=== PATIENT | female | born 1975 ===

== ENCOUNTER → 2019-01-02 20:55 | Outpatient (ROUT) | payer OTHER, SELFPAY ==
[2019-01-02 21:27] LABS: Add Manual Diff / Slide Review NO; Basophils Absolute Auto 0 /uL (0-100); Basophils Percent Auto 0.4 % (0-2); Eosinophils Absolute Auto 100 /uL (0-450); Eosinophils Percent Auto 0.5 % (2-4); Hematocrit 46.1 % (36-46); Hemoglobin 14.4 g/dL (12.0-16.0); Lymphocytes Absolute Auto 2400 /uL (1100-4500); Lymphocytes Percent Auto 24.2 % (25-40); Mean Corpuscular HGB Conc 31.3 % (30-36); Mean Corpuscular Hemoglobin 28.5 PG (26-34); Monocytes Absolute Auto 800 /uL (0-900); Monocytes Percent Auto 8.2 % (3-14); Neutrophils Absolute Auto 6500 /uL (1500-7000); Neutrophils Percent Auto 66.7 % (50-75); Platelet Count 289 X10^3/uL (150-400); Red Blood Cell Count 5.06 X10^6/uL (4.0-5.2); Red Cell Distribution Width 14.3 % (11.6-14.8); White Blood Cell Count 9.8 X10^3/uL (4.5-11.0)
[2019-01-02 21:35] LABS: Alanine Aminotransferase 25 IU/L (9-52); Albumin 4.5 g/dL (3.5-5.0); Albumin Globulin Ratio 1.6 (1.0-2.8); Alkaline Phosphatase 58 U/L (38-126); Aspartate Aminotransferase 20 IU/L (14-36); Bilirubin Total 0.6 mg/dL (0.2-1.3); Blood Urea Nitrogen 14 mg/dL (7-17); Calcium 9.6 mg/dL (8.4-10.2); Carbon Dioxide 25 mmol/L (22-32); Chloride 105 mmol/L (98-107); Estimated Glomerular Filt Rate > 60.0 mL/min (>60); Globulin 2.8 g/dL (1.7-4.1); Glucose 78 mg/dL (70-100); HEMOLYSIS < 15 (0-50); Potassium 4.4 mmol/L (3.4-5.1); Sodium 140 mmol/L (137-145); Total Protein 7.3 g/dL (6.3-8.2)
[2019-01-02 21:52] LABS: Free T3, Triiodothyronine Free 3.49 pg/mL (2.77-5.27); Free T4, Direct Thyroxine 1.01 ng/dL (0.78-2.19)
[2019-01-02 22:06] LABS: Thyroid Stimulating Hormone 2.13 uIU/mL (0.47-4.68)
[2019-01-02 22:10] LABS: Ferritin 34.7 ng/mL (6.27-137)
[2019-01-06 09:47] LABS: Estrogen 384.6 pg/mL
== END ==
PROVIDERS: Visit Provider Naturopath
DX: L70.9 Acne, unspecified (principal); R53.83 Other fatigue; I49.9 Cardiac arrhythmia, unspecified; G47.00 Insomnia, unspecified; R25.1 Tremor, unspecified
CPT/HCPCS: 36415; 80053; 82672; 82728; 84144; 84270; 84402; 84403; 84439; 84443; 84481; 84482; 85025